=== PATIENT | male | born 1950 | race Caucasian/White ===

== ENCOUNTER 2018-08-07 22:27 | Emergency (ER) | payer OTHER ==
[~2018-08-07] VITALS: Ht 175.3 cm; Wt 78.3 kg
[~2018-08-07 22:27] MED LIST: ATORVASTATIN PO; CIPROFLOXACIN PO; FLAGYL PO; HYDROCHLOROTHIAZIDE PO; LISINOPRIL PO
[2018-08-07 22:29] VITALS: Ht 175.3 cm; Wt 78.3 kg
[2018-08-08] MEDS ORDERED: morphine 4 MG/ML VIAL IV ONE (00:49)
[2018-08-08] MEDS ORDERED: ONDANSETRON 4 MG INJ IV ONE (00:49)
--- NOTE | 2018-08-08 03:56 | ERD ---
ER Documentation Chief Complaint Chief Complaint AP X'S 2 DAYS HPI 68-year-old male with a history of diverticulitis presents with abdominal pain that is left-sided for the last 2 days. He denies fever, endorses nausea, he has not had any chest pain or shortness of breath. Pain has been intermittent, has been worse with food. He denies history of abdominal surgeries. ROS All systems reviewed and are negative except as per history of present illness. Medications Home Meds Reported Medications Lisinopril* (Lisinopril*) 40 Mg Tablet, 40 MG PO DAILY for 90 Days, #90 08/08/18 Hydrochlorothiazide* (Hydrochlorothiazide*) 25 Mg Tab, 25 MG PO BID for 45 Days, #90 08/08/18 Discontinued Reported Medications [Flagyl] No Conflict Check, PO 02/08/15 [Ciprofloxacin] No Conflict Check, PO 02/08/15 [Atorvastatin] No Conflict Check, PO 02/08/15 [Lisinopril] No Conflict Check, PO 02/08/15 [Hydrochlorothiazide] No Conflict Check, PO 02/08/15 Allergies Allergies: Coded Allergies: No Known Allergy (Unverified , 08/08/18) PMhx/Soc Medical and Surgical Hx: pt denies Surgical Hx History of Surgery: No Anesthesia Reaction: No Hx Neurological Disorder: No Hx Respiratory Disorders: No Hx Cardiac Disorders: Yes (HTN, HYPERLIPID) Hx Psychiatric Problems: No Hx Miscellaneous Medical Probl: Yes (diverticulitis) Hx Alcohol Use: Yes (20 YRS AGO) Hx Substance Use: Yes (MARIJUANA daily) Hx Tobacco Use: Yes (10/day) Smoking Status: Current every day smoker Physical Exam Vitals Vital Signs Date Temp Pulse Resp B/P (MAP) Pulse Ox O2 O2 Flow FiO2 Time Delivery Rate 08/07/18 99.9 116 18 156/76 97 22:29 (102) Physical Exam Const: No acute distress Head: Atraumatic Eyes: Normal Conjunctiva ENT: Normal External Ears, Nose and Mouth. Neck: Full range of motion. No meningismus. Resp: Clear to auscultation bilaterally Cardio: Regular rate and rhythm, no murmurs Abd: Soft, there is tenderness in the left lower quadrant, there is no rebound or guarding, there is no McBurney's point tenderness. Normal bowel sounds Skin: No petechiae or rashes Back: No midline or flank tenderness Ext: No cyanosis, or edema Neur: Awake and alert Psych: Normal Mood and Affect Result Diagram: 08/08/1813908/08/18 014 Results 24 hrs Laboratory Tests Test 08/08/18 01:40 White Blood Count 9.1 10^3/ul Red Blood Count 4.29 10^6/ul Hemoglobin 13.3 g/dl Hematocrit 39.6 % Mean Corpuscular Volume 92.3 fl Mean Corpuscular Hemoglobin 31.0 pg Mean Corpuscular Hemoglobin Concent 33.6 g/dl Red Cell Distribution Width 13.0 % Platelet Count 172 10^3/UL Mean Platelet Volume 10.6 fl Immature Granulocytes % 0.300 % Neutrophils % % Segmented Neutrophils % (Manual) 59 % Band Neutrophils % (Manual) 32 % Lymphocytes % % Lymphocytes % (Manual) 4 % Monocytes % % Monocytes % (Manual) 4 % Eosinophils % % Basophils % % Basophils % (Manual) 1 % Nucleated Red Blood Cells % 0.0 /100WBC Immature Granulocytes # 0.030 10^3/ul Neutrophils # 10^3/ul Neutrophils # (Manual) 5.6 10^3/ul Band Neutrophils # 2.9 10^3/ul Lymphocytes (Manual) 0.3 10^3/ul Lymphocytes # 10^3/ul Monocytes # 10^3/ul Monocytes # (Manual) 0.3 10^3/ul Eosinophils # 10^3/ul Basophils # 10^3/ul Basophils # (Manual) 0.0 10^3/ul Nucleated Red Blood Cells # 10^3/ul Platelet Estimate NORMAL Polychromasia 2+ Anisocytosis 1+ Microcytosis 1+ Sodium Level 138 mmol/L Potassium Level 3.1 mmol/L Chloride Level 104 mmol/L Carbon Dioxide Level 25 mmol/L Anion Gap 9 Blood Urea Nitrogen 16 mg/dl Creatinine 0.88 mg/dl Est Glomerular Filtrat Rate mL/min > 60 mL/min Glucose Level 116 mg/dl Calcium Level 9.3 mg/dl Total Bilirubin 0.6 mg/dl Direct Bilirubin 0.00 mg/dl Indirect Bilirubin 0.6 mg/dl Aspartate Amino Transf (AST/SGOT) 23 IU/L Alanine Aminotransferase (ALT/SGPT) 34 IU/L Alkaline Phosphatase 86 IU/L Troponin I < 0.012 ng/ml Total Protein 7.8 g/dl Albumin 4.4 g/dl Globulin 3.40 g/dl Albumin/Globulin Ratio 1.29 Lipase 378 U/L Current Medications Medications Dose Sig/Lucrecia Start Time Status Last (Trade) Ordered Route PRN Stop Time Admin Dose Reason Admin Morphine 4 mg ONCE ONCE 08/08/18 DC 08/08/18 Sulfate IV 00:49 08/08/18 01:05 (morphine) 00:50 Ondansetron 4 mg ONCE ONCE 08/08/18 DC 08/08/18 HCl (Zofran IV 00:49 08/08/18 01:05 Inj) 00:50 Procedures/MDM 68-year-old male presents for evaluation of abdominal pain. Patient was given pain control, and experienced some relief, his labs were overall unremarkable, his CT abdomen pelvis showed no evidence of acute diverticulitis, did show possible ileus, versus enteritis. Patient remained hemodynamically stable in the ED, serial abdominal exams, revealed no worsening of symptoms. At discharge the patient was in no distress. Departure Diagnosis: Primary Impression: Abdominal pain Abdominal location: unspecified location Qualified Codes: R10.9 - Unspecified abdominal pain Condition: Stable Patient Instructions: Abdominal Pain ARCHANA RUBIN MD Aug 08, 2018 03:56
[2018-08-08] MEDS ORDERED: LISI40TA3 PO (04:37)
[2018-08-08] MEDS ORDERED: HYDR25TA6 PO (04:37)
[2018-08-08] MEDS ORDERED: FAMO-96 PO (05:04)
[2018-08-08] MEDS ORDERED: ONDA8TAB14 PO (05:04)
[2018-08-08 05:30] VITALS: BP 111/70; PULSE 79; RESP 16
== END 2018-08-08 05:30 | disposition home or self-care (01) ==
LOC: E/R 22:27
DX: R10.32 Left lower quadrant pain (principal); I10 Essential (primary) hypertension; F17.210 Nicotine dependence, cigarettes, uncomplicated
CPT/HCPCS: 36415; 74176; 80053; 83690; 84484; 85025; 93005; 96374; 96375; 99285; J2270; J2405